=== PATIENT | female | born 1980 | race Caucasian/White ===

== ENCOUNTER 2017-03-16 00:20 | Emergency (ER) | payer MEDICAID | END 2017-03-16 06:06 | disposition home or self-care (01) | LOC: FTE 00:20 | DX: R07.89 Other chest pain (principal) | CPT/HCPCS: 71045; 93005; 99284-25 ==

== ENCOUNTER 2018-11-15 13:29 | Inpatient (IN) | payer MEDICAID ==
[2018-11-15 14:28] LABS: ADD MAN DIFF? NO
[2018-11-15 14:35] LABS: WHITE BLOOD COUNT 7.7 10^3/ul (4.8-10.8)
[2018-11-15 14:35] LABS: BASOPHILS % 0.3 % (0.0-2.0); EOSINOPHILS % 0.5 % (0.0-7.0); HEMOGLOBIN 13.6 g/dl (12.0-16.0); LYMPHOCYTES # 1.7 10^3/ul (0.8-2.9); LYMPHOCYTES % 22.6 % (15.0-51.0); MEAN CORPUSCULAR HEMOGLOBIN 29.8 pg (29.0-33.0); MEAN CORPUSCULAR HGB CONC 33.2 g/dl (32.0-37.0); MEAN CORPUSCULAR VOLUME 89.9 fl (82.0-101.0); MEAN PLATELET VOLUME 12.7 fl (7.4-10.4); MONOCYTE # 0.7 10^3/ul (0.3-0.9); MONOCYTES % 8.5 % (0.0-11.0); NEUTROPHIL # 5.2 10^3/ul (1.6-7.5); NEUTROPHILS % 67.3 % (39.0-77.0); PLATELET COUNT 165 10^3/UL (140-415); RED BLOOD COUNT 4.56 10^6/ul (4.20-5.40); RED CELL DISTRIBUTION WIDTH 13.3 % (11.5-14.5)
[2018-11-15 14:55] LABS: ALANINE AMINOTRANSFERASE 20 IU/L (13-69); ALBUMIN 3.6 g/dl (3.3-4.9); ALBUMIN/GLOBULIN RATIO 1.12; ALKALINE PHOSPHATASE 204 IU/L (42-121); ANION GAP 7 (5-13); ASPARTATE AMINO TRANSFERASE 31 IU/L (15-46); BILIRUBIN,INDIRECT 0.4 mg/dl (0-1.1); BILIRUBIN,TOTAL 0.4 mg/dl (0.2-1.3); BLOOD UREA NITROGEN 9 mg/dl (7-20); CALCIUM 9.1 mg/dl (8.4-10.2); CARBON DIOXIDE 21 mmol/L (21-31); CHLORIDE 107 mmol/L (97-110); CREATININE 0.63 mg/dl (0.44-1.00); Estimated GFR > 60 mL/min (>60); GLUCOSE 78 mg/dl (70-220); SODIUM 135 mmol/L (135-144); TOTAL PROTEIN 6.8 g/dl (6.1-8.1); URIC ACID 5.7 mg/dl (3.1-7.9)
[2018-11-15 14:58] LABS: ADD UMIC YES; UR ASCORBIC ACID NEGATIVE (NEGATIVE); UR BACTERIA FEW /HPF (NONE SEEN); UR BILIRUBIN (Dip) NEGATIVE (NEGATIVE); UR BLOOD (Dip) NEGATIVE (NEGATIVE); UR CLARITY SLIGHTLY CLOUDY (CLEAR); UR COLOR STRAW (YELLOW); UR GLUCOSE (Dip) NEGATIVE (NEGATIVE); UR KETONES (Dip) NEGATIVE (NEGATIVE); UR LEUKOCYTE ESTERASE (Dip) TRACE Leu/ul (NEGATIVE); UR NITRITE (Dip) NEGATIVE (NEGATIVE); UR RBC 1 /HPF (0-5); UR SPECIFIC GRAVITY (Dip) 1.004 (1.003-1.030); UR SQUAMOUS EPITHELIAL CELL FEW /HPF (FEW); UR TOTAL PROTEIN (Dip) NEGATIVE (NEGATIVE); UR UROBILINOGEN (Dip) NEGATIVE (NEGATIVE); UR WBC 3 /HPF (0-5)
[2018-11-15 16:21] LABS: INR 0.98; PROTIME 13.1 Sec (11.9-14.9)
[2018-11-15 16:22] LABS: PARTIAL THROMBOPLASTIN TIME 31.7 Sec (23.0-35.0)
[2018-11-15 16:52] LABS: HEPATITIS B SURFACE ANTIGEN NEGATIVE (NEGATIVE)
[2018-11-15] MEDS ORDERED: CA GLUCONATE (GM) 10% 10ML INJ IV (18:30)
[2018-11-15] MEDS ORDERED: MAGNESIUM SULFATE 4 GM/100 ML 100 ML (18:30)
[2018-11-15] MEDS: MAGNESIUM SULFATE 4 GM/100 ML 100 ML IV (18:48)
[2018-11-15] MEDS ORDERED: NALOXONE (0.4 MG/ML) INJ IV (19:00)
[2018-11-15] MEDS ORDERED: FENTAnyl 50 MCG/ML VIAL IV ×2 (19:00)
[2018-11-15] MEDS ORDERED: KETOROLAC 30 MG INJ IV ×2 (19:00)
[2018-11-15] MEDS ORDERED: DIPHENHYDRAMINE 50 MG INJ IV ×2 (19:00)
[2018-11-15] MEDS ORDERED: HYDROmorphONE 1 MG/5 ML IV SYRINGE IV ×2 (19:00)
[2018-11-15] MEDS ORDERED: ONDANSETRON 4 MG INJ IV ×2 (19:00)
[2018-11-15] MEDS ORDERED: METOCLOPRAMIDE 10 MG INJ IV (19:00)
[2018-11-15] MEDS ORDERED: HYDROmorphONE 0.5 MG/0.5 ML SYG IV ×2 (19:00)
[2018-11-15] MEDS ORDERED: ALBUTEROL 0.083% (NEB) 2.5 MG/3 ML AMP HHN (19:00)
[2018-11-15] MEDS: MAGNESIUM SULFATE 40GM/1000ML 1,000 ML IV (19:17)
[2018-11-15] MEDS: LABETALOL HCL 20MG INJ IV (19:25)
[2018-11-15] MEDS ORDERED: PHENYLephrine (100 MCG/ML) 10ML SYG (19:49)
[2018-11-15] MEDS ORDERED: morphine SULFATE/PF (10 MG/10 ML) INJ (19:49)
[2018-11-15] MEDS ORDERED: OXYTOCIN 30 UNITS/LR 500 ML BAG IV (19:49)
[2018-11-15] MEDS: LACTATED RINGER'S 1,000 ML IV (20:00)
[2018-11-15] MEDS: CEFAZOLIN 2 GM/50 ML (PMX) 50 ML IVPB (20:00)
[2018-11-15] MEDS ORDERED: MISOPROSTOL 200 MCG TAB PR ×2 (22:00→23:30)
[2018-11-15] MEDS ORDERED: OXYTOCIN 30 UNITS/LR 500 ML IV ×2 (22:00→23:30)
[2018-11-15] MEDS ORDERED: CARBOPROST 250 MCG INJ IM ×2 (22:00→23:30)
[2018-11-15] MEDS: OXYTOCIN 30 UNITS/LR 500 ML IV (22:21)
[2018-11-15 22:48] LABS: HEPATITIS B SURFACE ANTIGEN NEGATIVE (NEGATIVE)
[2018-11-16 01:46] LABS: MAGNESIUM 4.8 mg/dl (1.7-2.5)
[2018-11-16] MEDS: MAGNESIUM SULFATE 40GM/1000ML 1,000 ML IV ×2 (03:18→15:02)
[2018-11-16] MEDS: OXYTOCIN 30 UNITS/LR 500 ML IV (03:25)
[2018-11-16 06:55] LABS: ADD MAN DIFF? NO
[2018-11-16 06:59] LABS: BASOPHILS % 0.2 % (0.0-2.0); EOSINOPHILS % 0.2 % (0.0-7.0); HEMATOCRIT 37.4 % (37.0-47.0); HEMOGLOBIN 12.3 g/dl (12.0-16.0); LYMPHOCYTES # 1.5 10^3/ul (0.8-2.9); LYMPHOCYTES % 14.3 % (15.0-51.0); MEAN CORPUSCULAR HEMOGLOBIN 29.6 pg (29.0-33.0); MEAN CORPUSCULAR HGB CONC 32.9 g/dl (32.0-37.0); MEAN CORPUSCULAR VOLUME 89.9 fl (82.0-101.0); MEAN PLATELET VOLUME 12.5 fl (7.4-10.4); MONOCYTE # 0.6 10^3/ul (0.3-0.9); MONOCYTES % 5.3 % (0.0-11.0); NEUTROPHIL # 8.5 10^3/ul (1.6-7.5); NEUTROPHILS % 79.5 % (39.0-77.0); PLATELET COUNT 141 10^3/UL (140-415); RED BLOOD COUNT 4.16 10^6/ul (4.20-5.40); RED CELL DISTRIBUTION WIDTH 13.2 % (11.5-14.5)
[2018-11-16 06:59] LABS: WHITE BLOOD COUNT 10.7 10^3/ul (4.8-10.8)
[2018-11-16 07:39] LABS: MAGNESIUM 5.7 mg/dl (1.7-2.5)
[2018-11-16] MEDS: SENNA/DOCUSATE NA (8.6MG/50MG) TAB PO ×2 (09:28→21:32)
[2018-11-16] MEDS: LACTATED RINGER'S 1,000 ML IV (10:16)
[2018-11-16 13:02] LABS: MAGNESIUM 5.8 mg/dl (1.7-2.5)
[2018-11-16 16:14] LABS: RAPID PLASMA REAGIN NONREACTIVE (NR)
[2018-11-16 19:43] LABS: MAGNESIUM 6.1 mg/dl (1.7-2.5)
[2018-11-16] MEDS: IBUPROFEN 800 MG TAB PO (21:32)
[2018-11-16] MEDS: LANOLIN HPA 1 PKT TOP (21:33)
[2018-11-17] MEDS: IBUPROFEN 800 MG TAB PO ×3 (06:05→21:31)
[2018-11-17] MEDS: SENNA/DOCUSATE NA (8.6MG/50MG) TAB PO ×2 (10:23→21:30)
[2018-11-17] MEDS: OXYCODONE/ACETAMINOPHEN (5/325) TAB PO ×2 (10:24→17:05)
[2018-11-17 18:36] LABS: MAGNESIUM 2.5 mg/dl (1.7-2.5)
[2018-11-18] MEDS: IBUPROFEN 800 MG TAB PO ×2 (06:11→14:00)
[2018-11-18] MEDS: OXYCODONE/ACETAMINOPHEN (5/325) TAB PO ×2 (08:01→13:57)
[2018-11-18] MEDS: DIPHTH/TET/ACEL PERTUSS (ADULT) 0.5 ML VIAL IM* (09:00)
[2018-11-18] MEDS: SENNA/DOCUSATE NA (8.6MG/50MG) TAB PO (12:19)
== END 2018-11-18 18:05 | disposition home or self-care (01) | DRG 785 ==
LOC: OBT 13:29 → PP1 11-16 00:31 → L-D 13:29 → OBT 14:15 → L-D 14:15
PROC: 10D00Z1 Extraction of Products of Conception, Low, Open Approach (ICD-10-PCS; principal; 2018-11-16)
PROC: 0UB70ZZ Excision of Bilateral Fallopian Tubes, Open Approach (ICD-10-PCS; 2018-11-16)
DX: O14.13 Severe pre-eclampsia, third trimester (principal); O24.429 Gestational diabetes mellitus in childbirth, unspecified control; O34.211 Maternal care for low transverse scar from previous cesarean delivery; Z3A.38 38 weeks gestation of pregnancy; Z37.0 Single live birth; Z30.2 Encounter for sterilization
CPT/HCPCS: 76818; 80053; 81001; 82962; 83735; 84560; 85025; 85610; 85730; 86592; 86850; 86900; 86901; 87340; 88302; 99464